=== PATIENT | female | born 1945 | race American Indian/Alaskan Native ===

== ENCOUNTER 2019-07-24 09:25 | Outpatient (CLI) | payer MEDICARE ==
--- NOTE | 2019-07-26 13:00 | Magnetic Resonance Report ---
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 She took extramastane for 5 years and stopped April 2019. COMPARISONS: 07/12/2019 bilateral mammogram. TECHNIQUE: Axial 1.0 mm T1 without, axial high-resolution 2.0 mm T2 and axial 1.0 mm dynamic vibrant high-resolution postcontrast T1 fat saturation sequences on a 1.5 Carolyn magnet. The examination was p erformed with an 8-channel dedicated [place] breast coil. Post-processing with CAD and subtraction was performed on an [employer] workstation. 17.0 cc of MultiHance was injected without incident for the c ontrast portion of the exam. Consent was obtained prior to the administration of the contrast. FINDINGS: RIGHT BREAST: Minimal background parenchymal enhancement. No mass or suspicious enhancement. No suspi cious right axillary or right internal mammary lymph nodes. LEFT BREAST: Minimal background parenchymal enhancement. Central posterior postsurgical scar approxim ately 8 cm from the nipple. A 1.7 x 1.3 x 1.2 cm T2 hyperintense cavity at the scar. No mass or suspi cious enhancement. No suspicious left axillary or left internal mammary lymph nodes. IMPRESSION: Negative study with no evidence of disease recurrence in the left breast and negative rig ht breast. No suspicious lymph nodes. BI-RADS Category 2: Benign Signer Name: Héctor Jj MD Signed: 07/26/2019 12:55 PM Workstation Name: [id number]
== END 2019-07-24 09:26 | disposition home or self-care (01) ==
LOC: SPVIMAG 09:25
PROVIDERS: ATTEND Surgery
DX: Z85.3 Personal history of malignant neoplasm of breast (principal); F17.210 Nicotine dependence, cigarettes, uncomplicated; I10 Essential (primary) hypertension; Z90.710 Acquired absence of both cervix and uterus
CPT/HCPCS: A9577; C8908; 77049

== ENCOUNTER 2020-04-29 09:51 | Outpatient (CLI) | payer MEDICARE ==
--- NOTE | 2020-04-29 10:39 | Ultrasound Report ---
EXAMINATION: Left Complete Breast Ultrasound, 04/29/2020 INDICATION: Left breast lump. COMPARISON: Left breast ultrasound 02/03/17. FINDINGS: Complete sonographic evaluation of all 4 quadrants and retroareolar region was performed. There is vague posterior shadowing at the 2:00 position 5 cm from the nipple at the site of the palpa ble abnormality. This is in the region of a prior surgical scar and the appearance has not changed si gnificantly since 2017. I see no evidence of a discrete mass or other abnormality in the left breast. There is no evidence of ductal ectasia or axillary adenopathy.. IMPRESSION: Localized posterior shadowing at the site of the patient's palpable abnormality at the 2: 00 position corresponds to the site of a surgical scar and is stable compared to 05/29/17 ultrasound. No new abnormality is seen. Follow up recommendation: Routine yearly BI-RADS Category 2: Benign. Signer Name: Matthias Gresham MD Signed: 04/29/2020 10:34 AM Workstation Name: [id number]
== END 2020-04-29 09:52 | disposition home or self-care (01) ==
LOC: SPVWC 09:51
PROVIDERS: ATTEND Surgery
DX: R92.8 Other abnormal and inconclusive findings on diagnostic imaging of breast (principal); Z85.3 Personal history of malignant neoplasm of breast

== ENCOUNTER 2021-12-30 11:29 | Outpatient (CLI) | payer MEDICARE ==
--- NOTE | 2022-01-01 08:12 | Mammography Report ---
DIGITAL SCREENING MAMMOGRAM WITH CAD, 12/30/2021 CLINICAL INFORMATION / INDICATION: Routine screening mammography. Left breast surgery and 2009. TECHNIQUE: Digital bilateral 2D mammography was obtained in the craniocaudal and mediolateral obliqu e projections. This examination was interpreted with the benefit of Computer-Aided Detection analysis . COMPARISON: 07/17/20, 04/17/20, 07/12/19 FINDINGS: Breast Density: The breasts are heterogeneously dense, which may obscure small masses. No dominant mass, suspicious calcifications, or architectural distortion in either breast. Left breast postsurgical findings are unchanged. Right breast biopsy markers are unchanged. IMPRESSION: No mammographic evidence of malignancy. No significant change. Follow up recommendation: Routine yearly BI-RADS Category 2: BENIGN. A "normal" or negative report should not discourage follow up or biopsy of a clinically significant f inding. A written summary of these findings will be mailed to the patient. The patient will be entered into a mammography reporting system which will generate a reminder letter for the patient's next appointmen t at the appropriate interval. The [employer] recommends yearly mammograms starting at age 40 and continuing as l nida as a woman is in good health. Breast MRI is recommended for women with an approximate 20-25% or greater lifetime risk of breast cancer, including women with a strong family history of breast or ova man cancer or who have been treated for Hodgkin's disease. Signer Name: Crescencio Deng MD Signed: 01/01/2022 8:08 AM Workstation Name: [id number]
== END 2021-12-30 11:30 | disposition home or self-care (01) ==
LOC: SPVWC 11:29
PROVIDERS: ATTEND Surgery
DX: Z12.31 Encounter for screening mammogram for malignant neoplasm of breast (principal)
CPT/HCPCS: 77067